=== PATIENT | male | born 1960 | race Two or more races ===

== ENCOUNTER 2021-05-05 12:03 | Inpatient (IN) | payer MEDICAID, OTHER ==
[~2021-05-05] VITALS: Ht 175.3 cm; Wt 106.1 kg
[2021-05-05] MEDS ORDERED: SODIUM CHLORIDE 0.9% 1,000 ML IV ONE (12:15)
[2021-05-05] MEDS ORDERED: DOPamine 1600MCG/ML D5W 250 ML IV ONE ×2 (13:45→20:21)
[2021-05-05 14:27] LABS: Basophils # (auto) 0 10 ^3/uL (0-0.2); Basophils % (auto) 0.8 % (0.0-2.0); Eosinophils # (auto) 0.1 10 ^3/uL (0-0.8); Eosinophils % (auto) 1.9 % (0.0-7.0); Hematocrit 39.3 % (41.0-53.0); Hemoglobin 13.6 g/dL (13.5-17.5); Lymphocytes # (auto) 1.8 10 ^3/uL (0.4-5.4); Lymphocytes % (auto) 38.4 % (10.0-50.0); Mean Corpuscular Hemoglobin 32.1 pg (28.0-32.0); Mean Corpuscular Hgb Conc. 34.7 g/dL (32.0-36.0); Mean Corpuscular Volume 92.6 fL (80.0-100.0); Monocytes # (auto) 0.4 10 ^3/uL (0-1.3); Monocytes % (auto) 9.8 % (0.0-12.0); Neutrophils # (auto) 2.3 10 ^3/uL (1.6-8.6); Neutrophils % (auto) 49.1 % (37.0-80.0); Nucleated Red Blood Cells % 0.1 %; Red Blood Cells 4.24 10^6/uL (4.5-5.90); Red Cell Distribution Width 13.8 % (11.8-14.3); White Blood Cell 4.6 10^3/uL (4.4-10.8)
[2021-05-05 14:32] LABS: Potassium 4.4 mmol/L (3.5-5.1)
[2021-05-05 14:34] LABS: INR 1.1 (0.9-1.15); Partial Thromboplastin Time 26.5 sec (23.6-33.0)
[2021-05-05 14:42] LABS: BUN/Creatinine Ratio 28.8; Bilirubin, Total 0.6 mg/dL (0.2-1.0); Calcium 8.4 mg/dL (8.5-10.1); Total Protein 6.9 g/dL (6.4-8.2)
[2021-05-05 15:13] LABS: Urine WBC None Seen /hpf (0 - 3)
[2021-05-05 15:40] LABS: Urine Bacteria NONE SEEN /hpf (None Seen); Urine Blood Negative /uL (Negative); Urine Mucus FEW (None Seen); Urine Specific Gravity 1.016 (1.001-1.035)
[2021-05-05] MEDS ORDERED: ONDANSETRON HCL 4 MG/2 ML VIAL IV PRN (18:30)
[2021-05-05] MEDS ORDERED: MORPHINE SULFATE INJECTION 2 MG/ML SYRG IV PRN (18:30)
[2021-05-05] MEDS ORDERED: DOCUSATE SOD 100 MG CAP PO PRN (18:30)
[2021-05-05] MEDS ORDERED: NITROGLYCERIN 0.4 MG SL TAB SL PRN (18:30)
[2021-05-05] MEDS ORDERED: VANCOMYCIN PER PHARMACY 0 MG IV SCH (18:30)
[2021-05-05] MEDS ORDERED: VANCOMYCIN 1GM/250ML 250 ML IV ONE (20:00)
[2021-05-05] MEDS: levoFLOXacin 500MG 100 ML IV SCH (20:33)
[2021-05-05] MEDS: TEMAZEPAM 15 MG CAP PO PRN (21:59)
[2021-05-05] MEDS: ASCORBIC ACID 500 MG TAB PO SCH (22:26)
[2021-05-06] MEDS ORDERED: ACETAMINOPHEN 500 MG TAB PO PRN (00:30)
[2021-05-06] MEDS ORDERED: DOPamine 1600MCG/ML D5W 250 ML IV ONE (00:40)
[2021-05-06] MEDS: DOPamine 1600MCG/ML D5W 250 ML IV SCH ×2 (01:04→04:59)
[2021-05-06] MEDS: VANCOMYCIN 1GM/250ML 250 ML IV SCH ×4 (05:58→22:37)
[2021-05-06 07:45] LABS: Albumin 2.5 g/dL (3.4-5.0); Calcium 7.5 mg/dL (8.5-10.1); Potassium 3.4 mmol/L (3.5-5.1)
[2021-05-06 07:48] LABS: BUN/Creatinine Ratio 21.8; Bilirubin, Total 1.2 mg/dL (0.2-1.0); Total Protein 6.4 g/dL (6.4-8.2)
[2021-05-06 08:21] LABS: Basophils # (auto) 0.1 10 ^3/uL (0-0.2); Basophils % (auto) 1.3 % (0.0-2.0); Eosinophils # (auto) 0 10 ^3/uL (0-0.8); Eosinophils % (auto) 0.6 % (0.0-7.0); Hemoglobin 13.1 g/dL (13.5-17.5); Lymphocytes # (auto) 0.9 10 ^3/uL (0.4-5.4); Lymphocytes % (auto) 13.7 % (10.0-50.0); Mean Corpuscular Hemoglobin 31.4 pg (28.0-32.0); Mean Corpuscular Hgb Conc. 33.5 g/dL (32.0-36.0); Mean Corpuscular Volume 93.9 fL (80.0-100.0); Monocytes # (auto) 0.4 10 ^3/uL (0-1.3); Monocytes % (auto) 5.9 % (0.0-12.0); Neutrophils # (auto) 5.2 10 ^3/uL (1.6-8.6); Neutrophils % (auto) 78.5 % (37.0-80.0); Nucleated Red Blood Cells % 0.1 %; Red Blood Cells 4.15 10^6/uL (4.5-5.90); Red Cell Distribution Width 13.6 % (11.8-14.3); White Blood Cell 6.6 10^3/uL (4.4-10.8)
[2021-05-06] MEDS ORDERED: ENOXAPARIN SOD 40 MG/0.4 ML SYRINGE SC SCH (10:00)
[2021-05-06] MEDS: ASCORBIC ACID 500 MG TAB PO SCH ×2 (10:17→22:00)
[2021-05-06] MEDS: ZINC SULFATE 220mg CAP or TAB PO SCH (10:17)
[2021-05-06] MEDS: MULTIPLE VITAMIN TAB PO SCH (10:17)
[2021-05-06] MEDS: levoFLOXacin 500MG 100 ML IV SCH (11:53)
[2021-05-06] MEDS: TEMAZEPAM 15 MG CAP PO PRN (23:11)
[2021-05-07] MEDS: DOPamine 1600MCG/ML D5W 250 ML IV SCH (02:51)
[2021-05-07] MEDS: ZINC SULFATE 220mg CAP or TAB PO SCH (09:40)
[2021-05-07] MEDS: ASCORBIC ACID 500 MG TAB PO SCH (09:40)
[2021-05-07] MEDS: MULTIPLE VITAMIN TAB PO SCH (09:40)
[2021-05-07] MEDS: levoFLOXacin 500MG 100 ML IV SCH (09:56)
[2021-05-07 11:13] VITALS: BP 125/56
== END 2021-05-07 13:51 | disposition left against medical advice (07) | DRG 720 ==
LOC: EDBD 12:03 → ER 12:03 → TELE 18:16
PROVIDERS: ADMIT Internal Medicine; ATTEND Internal Medicine
DX: A41.9 Sepsis, unspecified organism (principal); L97.919 Non-pressure chronic ulcer of unspecified part of right lower leg with unspecified severity; L03.115 Cellulitis of right lower limb; E66.01 Morbid (severe) obesity due to excess calories; I48.91 Unspecified atrial fibrillation; Z20.822 Contact with and (suspected) exposure to COVID-19; Z53.29 Procedure and treatment not carried out because of patient's decision for other reasons; L97.929 Non-pressure chronic ulcer of unspecified part of left lower leg with unspecified severity; R00.1 Bradycardia, unspecified; Z82.3 Family history of stroke; Z82.49 Family history of ischemic heart disease and other diseases of the circulatory system; Z87.891 Personal history of nicotine dependence; Z68.34 Body mass index [BMI] 34.0-34.9, adult; L03.116 Cellulitis of left lower limb
CPT/HCPCS: 36415; 70450; 71045; 76700; 80053; 80202; 81001; 83880; 84443; 84484; 85025; 85610; 85730; 87426; 93005; 93306; 96361; 96365; 96366; 96368; 96375; 99291; G0378; J1956; J2405